=== PATIENT | female | born 1965 ===

== ENCOUNTER 2016-12-28 10:36 | Emergency (ER) | payer MEDICARE, MEDICAID ==
--- NOTE | ~2016-12-28 | ER ---
PATIENT'S NAME: [facility] AGE: 51 Y [address] ROOM: [place], [place] [address] LOCATION: ED ADMIT DATE: 12/28/2016 ER/Outpatient Report DISCHARGE DATE: 12/28/2016 FAMILY PHYSICIAN: PHYSICIAN, NO ATTENDING PHYSICIAN: Clifton Edgar CHIEF COMPLAINT: Dizzy with nausea and dry heaves. HISTORY OF PRESENT ILLNESS: The patient states that she was started on treatment for UTI yesterday, but awoke early this morning with vomiting and dry heaves and since then she has felt dizzy. She has felt like this when she was very dehydrated in the past. She has a complex medical history including diabetes and metastatic breast cancer, for which she is on immunomodulating therapy. She also has a history of rheumatoid arthritis and fibromyalgia. She is not reserving a chemo, but is in fact on Rituxan at this time. She denies any fevers associated with this. She has only had one dose of her antibiotics. PAST MEDICAL HISTORY: Documented on the record and reviewed by me. SOCIAL HISTORY: Documented on the record and reviewed by me. MEDICATIONS: Documented on the record and reviewed by me. ALLERGIES: DOCUMENTED ON THE RECORD AND REVIEWED BY ME. REVIEW OF SYSTEMS: All systems reviewed and negative except as noted in the HPI. PHYSICAL EXAMINATION: VITAL SIGNS: Blood pressure 145/76, pulse 100, respiratory rate is 20, temperature 98.8, SpO2 is 92% on room air. Pain is rated at 5/10. GENERAL: An age appropriate female, tired appearance, recumbent on the exam table. NEUROLOGIC: Awake and alert. GCS 15. No focal deficits. No asymmetry. HEENT: Normocephalic, atraumatic. Eyes are PERRL. Oropharynx is clear. NECK: Supple. Trachea is midline. CHEST/HEART: Regular rate and rhythm with no murmurs. LUNGS: Clear to auscultation bilateral with no rhonchi, wheezes, or rales. ABDOMEN: Soft, nontender, and nondistended. No rebound guarding or masses. PATIENT'S NAME: JESS [facility] AGE: 51 Y [address] ROOM: [place], [place] [address] LOCATION: ED ADMIT DATE: 12/28/2016 ER/Outpatient Report DISCHARGE DATE: 12/28/2016 FAMILY PHYSICIAN: PHYSICIAN, NO ATTENDING PHYSICIAN: Clifton Edgar Intermittent tenderness of the suprapubic region, nonreproducible. BACK: Normal to inspection and palpation. No CVA tenderness. No spinal tenderness. EXTREMITIES: Warm, well formed, and well perfused. No erythema. SKIN: Clean, dry, and intact. LABORATORY DATA AND X-RAYS: No imaging was obtained. Urinalysis; no leukocytes, nitrites, or blood. Blood gas; pH 7.48, pCO2 is 34, pO2 is 74, bicarb is 25.3, on room air lactate is 0.5. CBC; white count is 9.6, hemoglobin 12.8, platelets are 145. Serum ketones are negative. Free T4 and TSH are within appropriate limits. CMS with chloride of 113, CO2 of 24, glucose of 161. No hepatobiliary abnormalities. Renal function is within normal limits. CRP is 1.58. Procalcitonin 0.12. IMPRESSION: Clinical hypovolemia without evidence of dehydration. EMERGENCY DEPARTMENT COURSE: The patient was seen and evaluated. No evidence of DKA or immunocompromise. No ketosis. No clear source of infection at this time. Unlikely to be pulmonary. Recommend continuation of antibiotics at home. Discussed need for persistent hydration with nitrofurantoin. She was given 2 L of normal saline in the emergency department. She had near complete resolution of her headache and was otherwise feeling better overall. I believe it is safe at this time to go home. She has some medication at home to help with her nausea should it persist. All questions were answered and the patient was discharged in good condition. MD VOLODYMYR GODOY/[place]or[place] /[id number] d: 12/28/162052 t: 01/07/1702, OUTPATIENT REPORT
[~2016-12-28 10:36] MED LIST: ARAVA20 MG PO; DELTASONE5 MG PO; DULCOLAX5 MG PO; GUMMI BEAR MUL1 EACH PO; LYRICA 75MG CAP75 MG PO; NORCO 5-325 MG1 TAB PO; PLAQUENIL200 M1 PO; PRAVASTATIN SOD10 MG PO; PRESERVISION A1 EACH PO; PRILOSEC20 MG PO; ZOFRAN4 MG PO
[2016-12-28 11:36] LABS: BICARBONATE 25.3 mmol/L (18.0-23.0); HEMATOCRIT 38.8 % (33.0-46.0); HEMOGLOBIN 12.8 g/dL (10.0-15.0); MCV 91.1 fl (83.0-98.0); MPV 11.1 fl (9.4-12.4); PCO2 34 mmHg (35-45); PLATELET COUNT 145 K/uL (150-450); RBC 4.26 M/uL (3.50-5.50); RDW-CV 12.9 % (11.9-14.6); WBC 9.6 K/uL (4.0-11.0)
[2016-12-28 11:49] LABS: LACTATE 0.5 mEq/L (0.50-1.60); PO2 74 mmHg (80-90)
[2016-12-28 12:04] LABS: ALBUMIN 3.2 gm/dL (3.5-5.0); ALK PHOS 100 IU/L (33-138); ALT 24 IU/L (12-78); ANION GAP 8.8 (10.0-19.0); AST 31 IU/L (10-40); BLOOD UREA NITROGEN 13 mg/dL (6-24); CALCIUM 8.1 mg/dL (8.5-10.5); CHLORIDE 113 mMol/L (96-110); CO2 24 mMol/L (22-32); CREATININE 0.7 mg/dL (0.5-1.1); ESTIMATED GFR (MDRD EQUATION) > 60; POTASSIUM 3.8 mMol/L (3.7-5.1); SODIUM 142 mMol/L (135-145); TOTAL BILIRUBIN 0.8 mg/dL (0.0-1.5); TOTAL PROTEIN 6.1 g/dL (6.0-8.4)
[2016-12-28 12:05] LABS: ABSOLUTE NEUTROPHIL CT (ANC) 8.4 K/uL (1.8-7.8); BANDED NEUTROPHIL # 1.4 K/uL (0.0-0.1); BANDED NEUTROPHILS % 15 %; LYMPHOCYTE # 0.6 K/uL (0.8-4.0); LYMPHOCYTE % 6 %; MONOCYTE # 0.7 K/uL (0.0-1.0); SEGMENTED NEUTROPHIL # 6.9 K/uL (1.8-7.8); SEGMENTED NEUTROPHIL % 72 %
[2016-12-28 12:39] LABS: BILIRUBIN URINE NEGATIVE (NEGATIVE); BLOOD URINE NEGATIVE /UL (NEGATIVE); COLOR URINE YELLOW (YELLOW); GLUCOSE URINE NEGATIVE (NEGATIVE); KETONE URINE NEGATIVE (NEGATIVE); LEUKOCYTES URINE NEGATIVE /UL (NEGATIVE); NITRITE URINE NEGATIVE (NEGATIVE); PROTEIN URINE NEGATIVE (NEGATIVE); TURBIDITY URINE CLEAR (CLEAR); UROBILINOGEN URINE NORMAL (NORMAL)
== END 2016-12-28 13:36 | disposition disaster alternative care site (69) ==
LOC: GMED 10:36
PROVIDERS: Emergency Medicine
DX: E86.1 Hypovolemia (principal); C50.919 Malignant neoplasm of unspecified site of unspecified female breast; M06.9 Rheumatoid arthritis, unspecified; N39.0 Urinary tract infection, site not specified; E10.9 Type 1 diabetes mellitus without complications; M79.7 Fibromyalgia; Z88.2 Allergy status to sulfonamides; Z79.899 Other long term (current) drug therapy; Z98.890 Other specified postprocedural states; Z88.1 Allergy status to other antibiotic agents
CPT/HCPCS: J1642; J7030

== ENCOUNTER → 2017-01-28 | Outpatient (CLI) | payer MEDICARE, MEDICAID | LOC: LKCL 11:14 | DX: Z12.4 Encounter for screening for malignant neoplasm of cervix (principal) | CPT/HCPCS: G0145 ==